=== PATIENT | female | born 1990 | race Caucasian/White ===

== ENCOUNTER 2024-07-09 20:58 | Inpatient (IN) | payer OTHER, SELFPAY ==
--- OUTSIDE RECORDS SUMMARY | 2024-07-09 21:03 | XMS_ITS | Clinical Summary ---
Author Organization [employer] Address [address] [facility] [address] [place] [address] Care Team Providers Care Assistant Pressman Name Role Phone Unavailable Primary Care Provider Unavailabl e Encounters Date Type Department Care Team Description 07/04/[address] [phone] Judy Nava PA-C from Last 3 Months Social History Tobacco Use Types Packs/Day Years Used Date Smoking Tobacco: Never Assessed Comments Unknown Sex and Gender Information Value Date Recorded Sex Assigned at Female 04/14/2022 4:06 PM EDT Legal Sex Female 4:06 PM EDT Gender Identity Female 06/30/2024 12:22 PM EST Sexual Orientation Straight 06/30/2024 12 :22 PM EST Plan of Treatment Health Maintenance Due Date Last Done Comments Depression Screening 1991 HIV Screening 1991 SDOH Screening 1991 Alcohol/Substance Use Screening 2003 Tobacco Screening 2003 Family Planning (PISQ) 2006 Hepatitis C Screening 2009 DTaP/Tdap/Td Vaccines (2 - Tdap) 01/29/2010 01/29/20 10 Hepatitis B Vaccines (1 of 3 - 19+ 3-dose series) 2010 Pap Smear 2012 Cervical Cancer Screening 2021 HPV/Cotest 2021 COVID-19 Vaccine ( - 2023-2 5 season) 2024 Influenza Vaccine (#1) 2024 Zoster Vaccines (1 of 2) 2041 RSV Patients and Pa tients Aged 60 years or older (1 - 1-dose 75+ series) 2066 HIB Vaccines Aged Out No longer eligi ble based on patient's age to complete this topic HPV Vaccines Aged Out No longer eligi ble based on patient's age to complete this topic Hepatitis A Vaccines Aged Out No long er eligible based on patient's age to complete this topic IPV Vaccines Aged Out No longer eligi ble based on patient's age to complete this topic Meningococcal Vaccine Aged Out No bruce deana eligible based on patient's age to complete this topic Pneumococcal Vaccine: Pediat rics (0 to 5 Years) and At-Risk Patients (6 to 64 Years) Aged Out No longer eligi ble based on patient's age to complete this topic RSV under 20 months Aged Out No longe r eligible based on patient's age to complete this topic Rotavirus Vaccines Aged Out No longer eligible based on patient's age to complete this topic Insurance [id number] [phone]
--- OUTSIDE RECORDS SUMMARY | 2024-07-09 21:03 | XMS_ITS | Encounter Summary ---
Author Organization [employer] Address [address] [facility] [address] [place] [address] Care Team Providers Care Manager Office Services Name Role Phone Unavailable Primary Care Provider Unavailabl e Encounter Details Date Type Department Care Team (Late st Contact Info) Description 07/04/[address] [phone] Judy Nava PA-C [address] [place] [address] Social History Tobacco Use Types Packs/Day Years Used Date Smoking Tobacco: Never Assessed Comments Unknown Sex and Gender Information Value Date Recorded Sex Assigned at Female 04/14/2022 4:06 PM EDT Legal Sex Female 4:06 PM EDT Gender Identity Female 06/30/2024 12:22 PM EST Sexual Orientation Straight 06/30/2024 12 :22 PM EST documented as of this encounter Miscellaneous Notes * Telephone Encounter - Judy Bach PA-C - 07/04/2024 5:31 PM EST Patient had an appointment scheduled with me today. Called patient multiple times, unable to reach patient. Calls went straight to messages. Left a voice message for patient to call back. Judy Bach PA-C documented in this encounter Plan of Treatment Not on file documented as of this encounter Visit Diagnoses Not on filedocumented in this encounter
[2024-07-09 21:52] VITALS: BMI 36.4
[2024-07-09 21:53] VITALS: BP 141/73; PULSE 76; RESP 18; TEMP 36.8; O2SAT 98
[2024-07-09] MEDS: Acetaminophen 325 MG TABLET 650 MG PO (22:01)
[2024-07-09] MEDS: Nicotine Polacrilex 2 MG GUM 4 MG BUCCAL ×2 (22:02→23:27)
[2024-07-09] MEDS: Melatonin 3 MG TABLET 9 MG PO (22:02)
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
[2024-07-10] MEDS: Nicotine Polacrilex 2 MG GUM 4 MG BUCCAL ×10 (01:39→23:03)
[2024-07-10] MEDS: traZODone HCL 50 MG TABLET PO ×2 (02:02→23:19)
[2024-07-10] MEDS: Ondansetron ODT 4 MG TAB.RAPDIS TRANSLINGU ×2 (06:55→16:30)
[2024-07-10 08:00] VITALS: RESP 18
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
[2024-07-10] MEDS: Acetaminophen 325 MG TABLET 650 MG PO (09:41)
--- NOTE | 2024-07-10 10:26 | PC.NURSE ---
Pt declines participation in the safety tool at this time.
[2024-07-10] MEDS: OLANZapine ODT 10 MG TAB.RAPDIS TRANSLINGU ×4 (13:36→23:23)
[2024-07-10] MEDS: Nicotine 21 MG PATCH.TD24 TRANSDERMA (13:36)
--- NOTE | 2024-07-10 14:17 | P.CONHOSP_ITS ---
History of Present Illness Data of Consult Service Date: 07/10/24 Primary Care Provider: Unknown Physician HPI Reason for consult: Admission H&P Pt is a 34-year-old female with a PMH significant for?asthma, IBS, GERD polysubstance use disorder, PTSD, anxiety, and schizoaffective disorder who is [facility] due to erratic behavior, auditory hallucinations, and noncompliance with psychotropic medications. The pt initially called the police impulsively out of the knee to speak to someone and told them that she wanted to quit smoking cigarettes. Medical consult for admission H&P. ?Pt appears manic with pressured speech and flight of ideas, but easily redirectable. Patient spends a great deal of time discussing her desire to quit smoking and her current nicotine replacement therapy, which he is dissatisfied with as she can only get nicotine gum every 2 hours. Otherwise pt has no acute medical complaints. Denies fever, chills, nausea, vomiting, abdominal pain. No shortness a breath or difficulty breathing. No chest pain/pressure, palpitations. Denies headache or acute vision changes. Review of Systems Review of Systems: Pt has no acute medical complaints at this time [facility] Medical History Schizoaffective disorder, bipolar type Social History Household Members: None Do you presently have visiting nurse or other home services: No Patient Tobacco Use Status: Current everyday Tobacco user Tobacco use type: Cigarette Smoked in Last 30 Days: Yes Patient Interested in Nicotine Replacement: No Patient Given Instructions on How to Stop Smoking: Yes Date Education Initiated: 07/09/24 Second Hand Smoke Exposure: No Use of substances other than those prescribed or required for medical reasons: No Currently Displaying Signs/Symptoms of Drug Intoxication Withdrawal: No Have you been hit, kicked, punched, or otherwise hurt by someone within the past year? If so, by whom?: No Do you feel safe in your current relationship?: No Current Relationship Is there a partner from a previous relationship who is making you feel unsafe now?: No Are you made to feel afraid or neglected: No Advance Directives: No Advance Directives Information Provided: No Do you have thoughts of harming others: None Do you have a plan to hurt others: No Plan Recently lost weight without trying: No Nutrition Risks: No Nutritional Risk Patient : No : No Poor oral hygiene: No service: No Sexual orientation: Straight/Heterosexual Meds Allergies Allergy/AdvReac Type Severity Reaction Status Date / Time carbamazepine [From Tegretol] Allergy Unknown Verified 07/09/24 21:13 celery Allergy Gastrointestinal Verified 07/09/24 21:13 Upset ibuprofen Allergy Unknown Verified 07/09/24 21:13 lithium Allergy Unknown Verified 07/09/24 21:13 methocarbamol Allergy Unknown Verified 07/09/24 21:13 mirtazapine [From Remeron] Allergy Unknown Verified 07/09/24 21:13 topiramate [From Topamax] Allergy Unknown Verified 07/09/24 21:13 ziprasidone [From Geodon] Allergy Unknown Verified 07/09/24 21:13 Active Medications: Current Medications Acetaminophen (Acetaminophen 325 Mg Tablet) 975 mg PO Q6H PRN PRN Reason: Headache/Pain Mild Scale (1-6) Al Hydroxide/Mg Hydroxide (Magnesium Hydrox/Alum Hydrox 30 Ml Oral.Susp) 30 ml PO Q6H PRN PRN Reason: Heartburn/Nausea Hydroxyzine HCl (Hydroxyzine Hcl 25 Mg Tablet) 25 mg PO Q6H PRN PRN Reason: Anxiety Magnesium Hydroxide (Milk Of Magnesia 30 Ml Oral.Susp) 30 ml PO DAILY PRN PRN Reason: Constipation Melatonin (Melatonin 3 Mg Tablet) 9 mg PO BEDTIME [facility] Last Admin: 07/09/24 22:02 Dose: 9 mg Nicotine (Nicotine 21 Mg Patch.Td24) 21 mg TRANSDERMA DAILY PRN PRN Reason: smoking cessation Last Admin: 07/10/24 13:36 Dose: 21 mg Nicotine Polacrilex (Nicotine Polacrilex 2 Mg Gum) 4 mg BUCCAL Q2H PRN PRN Reason: Nicotine Cravings Last Admin: 07/10/24 12:28 Dose: 4 mg Olanzapine (Olanzapine Odt 10 Mg Tab.Rapdis) 10 mg TRANSLINGU BID BERE Olanzapine (Olanzapine Odt 10 Mg Tab.Rapdis) 10 mg TRANSLINGU BID PRN PRN Reason: agitation Ondansetron HCl (Ondansetron Odt 4 Mg Tab.Rapdis) 4 mg TRANSLINGU RQ4H PRN PRN Reason: Nausea and Vomiting Last Admin: 07/10/24 06:55 Dose: 4 mg Trazodone HCl (Trazodone Hcl 50 Mg Tablet) 50 mg PO BEDTIME MRX1 PRN PRN Reason: Insomnia Last Admin: 07/10/24 02:02 Dose: 50 mg Home Medications ?Medication ?Instructions ?Recorded ?Confirmed ?Last Taken ?Type alprazolam 1 mg tablet 1 mg PO 07/09/24 Unknown History alprazolam 1 mg tablet mg 07/09/24 Unknown History gabapentin 300 mg capsule mg 3XD 07/09/24 Unknown History Physical Exam Vital Signs and Narrative: Vital Signs: Last Vital Signs Temp 98.2 F 07/09/24 21:53 Pulse 76 07/09/24 21:53 Resp 18 07/10/24 08:00 BP 141/73 H 07/09/24 21:53 Pulse Ox 98 07/09/24 21:53 O2 Del Method Room Air 07/09/24 21:53 BMI result Body Mass Index 36.4 General: AOx3, no acute distress Resp: CTA bilaterally CVS: S1, S2, RRR GI: +BS, NT, no distention Skin: Warm, dry Neuro: Cranial nerves II-XII grossly intact bilaterally. Motor grossly intact bilaterally Extremities: No edema Psych: Appears manic with pressured speech and flight of ideas. Redirectable. Assessment and Plan (1) Medical clearance for psychiatric admission: Status: Acute Plan Pt is a 34-year-old female with a PMH significant for?asthma, IBS, GERD polysubstance use disorder, PTSD, anxiety, and schizoaffective disorder who is admitted to [facility] unit from her jail due to erratic behavior, auditory hallucinations, and noncompliance with psychotropic medications. The pt initially called the police impulsively out of the knee to speak to someone and told them that she wanted to quit smoking cigarettes. Medical consult for admission H&P. Mood disorder Plan as per Psychiatry GERD/IBS No longer on home meds Diet controlled Asthma Not in acute exacerbation Does not appear to be on home inhalers Pt has not used home inhaler in many years Thank you for allowing us to participate in the care of this patient. Signing off at this time. Please re-consult if any acute complaints or issues arise.
[2024-07-10] MEDS: hydrOXYzine HCL 25 MG TABLET PO ×2 (16:20→23:19)
[2024-07-10] MEDS: Milk of Magnesia 30 ML ORAL.SUSP PO (17:05)
[2024-07-10 20:00] VITALS: BP 132/89; PULSE 90; RESP 16; TEMP 36.8; O2SAT 97
[2024-07-10] MEDS: Melatonin 3 MG TABLET 9 MG PO (20:00)
[2024-07-10] MEDS: Acetaminophen 325 MG TABLET 975 MG PO (23:02)
[2024-07-11] MEDS: Nicotine Polacrilex 2 MG GUM 4 MG BUCCAL ×12 (04:01→22:23)
[2024-07-11] MEDS: Magnesium Hydrox/Alum Hydrox 30 ML ORAL.SUSP PO (04:01)
[2024-07-11] MEDS: OLANZapine ODT 10 MG TAB.RAPDIS TRANSLINGU ×5 (04:46→23:22)
[2024-07-11 07:35] VITALS: BP 125/62; PULSE 81; RESP 14; TEMP 36.8; O2SAT 97
--- NOTE | 2024-07-11 08:36 | P.PNPSI_ITS ---
Subjective Subjective Date of Service: 07/11/24 Reason For Visit: Schizoaffective disorder unspecified Interim History: Met with patient; discussed with team Patient was up most of the night, sometimes running down the [place], talking/yelling. Asking for things and refusing him. She did take Zyprexa however This morning patient woke up more calm and was able to talk in a reasonable way with real estate underwriter. She said she is feeling more balanced and believes it is due to the Zyprexa home which she says she will continue taking. She can answer why she stops taking it when she gets back to the [facility] but says she does not want them to know about her stay here other than when she is going home. Patient denies any SI or HI or AVH. She denies any paranoid delusional thoughts but then says there are some people stalking her in the community and says look at me... I am gorgeous... Patient is polite with real estate underwriter but ends the discussion by leaving the room and running up the [place]. Throughout the day patient had various somatic complaints such as stuffy nose, earache but refused treatments offered. Mental Status Exam Mental Status Exam Narrative: Pt is alert and oriented; behavior is dynamic, sometimes the more calm, cooperative side other times irritable, demanding, excited; patient is not in distress; dressed in casual attire with unkempt hair but adequate hygiene; mood is described as good and affect labile; eye contact appropriate; Speech is not so pressured but more normal rate, volume and prosody; intermittent psychomotor agitation present; thought process is goal directed; Thought content is on discharge, somatic complaints; otherwise pertinent to relevant topics and without any delusional content, paranoid ideations or grandiosity; denies any S I/HI. There is no evidence of perceptual disturbance. Patients insight and judgment appear intact. Diagnostics Vital Signs (24Hr): Vital Signs - 24 hr 07/10/24 20:00 07/11/24 07:35 Temperature 98.3 F 98.2 F Pulse Rate 90 81 Respiratory Rate 16 14 Blood Pressure 132/89 125/62 Pulse Oximetry 97 97 Oxygen Delivery Method Room Air Room Air BMI result Body Mass Index 36.4 Medications Medications Current Medications Acetaminophen (Acetaminophen 325 Mg Tablet) 975 mg PO Q6H PRN PRN Reason: Headache/Pain Mild Scale (1-6) Last Admin: 07/10/24 23:02 Dose: 975 mg Al Hydroxide/Mg Hydroxide (Magnesium Hydrox/Alum Hydrox 30 Ml Oral.Susp) 30 ml PO Q6H PRN PRN Reason: Heartburn/Nausea Last Admin: 07/11/24 04:01 Dose: 30 ml Hydroxyzine HCl (Hydroxyzine Hcl 25 Mg Tablet) 25 mg PO Q6H PRN PRN Reason: Anxiety Last Admin: 07/10/24 23:19 Dose: 25 mg Magnesium Hydroxide (Milk Of Magnesia 30 Ml Oral.Susp) 30 ml PO DAILY PRN PRN Reason: Constipation Last Admin: 07/10/24 17:05 Dose: 30 ml Melatonin (Melatonin 3 Mg Tablet) 9 mg PO BEDTIME BERE Last Admin: 07/10/24 20:00 Dose: 9 mg Nicotine (Nicotine 21 Mg Patch.Td24) 21 mg TRANSDERMA DAILY PRN PRN Reason: smoking cessation Last Admin: 07/10/24 13:36 Dose: 21 mg Nicotine Polacrilex (Nicotine Polacrilex 2 Mg Gum) 4 mg BUCCAL Q2H PRN PRN Reason: Nicotine Cravings Last Admin: 07/11/24 04:01 Dose: 4 mg Olanzapine (Olanzapine Odt 10 Mg Tab.Rapdis) 10 mg TRANSLINGU BID BERE Last Admin: 07/10/24 20:00 Dose: 10 mg Olanzapine (Olanzapine Odt 10 Mg Tab.Rapdis) 10 mg TRANSLINGU BID PRN PRN Reason: agitation Last Admin: 07/11/24 04:46 Dose: 10 mg Ondansetron HCl (Ondansetron Odt 4 Mg Tab.Rapdis) 4 mg TRANSLINGU RQ4H PRN PRN Reason: Nausea and Vomiting Last Admin: 07/10/24 16:30 Dose: 4 mg Trazodone HCl (Trazodone Hcl 50 Mg Tablet) 50 mg PO BEDTIME MRX1 PRN PRN Reason: Insomnia Last Admin: 07/10/24 23:19 Dose: 50 mg Allergies Allergies Allergy/AdvReac Type Severity Reaction Status Date / Time carbamazepine [From Tegretol] Allergy Unknown Verified 07/09/24 21:13 celery Allergy Gastrointestinal Verified 07/09/24 21:13 Upset ibuprofen Allergy Unknown Verified 07/09/24 21:13 lithium Allergy Unknown Verified 07/09/24 21:13 methocarbamol Allergy Unknown Verified 07/09/24 21:13 mirtazapine [From Remeron] Allergy Unknown Verified 07/09/24 21:13 topiramate [From Topamax] Allergy Unknown Verified 07/09/24 21:13 ziprasidone [From Geodon] Allergy Unknown Verified 07/09/24 21:13 Assessment & Plan Assessment & Plan (1) Schizoaffective disorder, bipolar type: Status: Acute Code(s): F25.0 - Schizoaffective disorder, bipolar type Plan HPI: Patient is a 34-year-old female with history of bipolar disorder/psychotic disorder, IBS, GERD, who resides in a [facility] and presents for what sounds like her baseline erratic, disorganized behavior. Patient said that she called the police herself because she wanted help quitting cigarettes. Base Loader expressed surprise that the police help with such things and patient said well they are here to protect and serve... Patient wanted to walk and talk at the same time however once real estate underwriter asked about her going off Zyprexa 2 weeks ago, she said I do not want to talk to anymore I think her going to manipulate me and walked away. She tolerated real estate underwriter re approaching her; real estate underwriter asked her what she wanted and she said just bring me Zyprexa. She would not answer anything after that. In the emergency room, prior to admission, she was angry, disorganized and ended up being restrained. sheetmetal worker talked with [facility] staff who reports that this is her clear pattern and report that she went off Zyprexa 2 weeks ago; will end up in the hospital, takes medications for few days, gets discharged and then immediately discontinues medications when she gets home. senior care staff report that patient calls the police nearly every night to say some strange or delusional thing; once she said that her father had a gun was going to kill family and a swat team was actually sent to her house.... Her staff reports that she is chronically resistant to care and does not take medication; they report she smokes copious amount of cannabis. They did not reports she does anything dangerous to self or others. Formulation/clinical reasoning: According to [facility] staff, patient's current presentation is pretty close to baseline. Patient called police who brought her to the hospital however again according to [facility] staff, this is a nightly event. senior care staff did not report any dangerousness to self or others and treatment team can find no clear reason why the police chose to bring her to the ED on this particular night verses others. Patient seems grudgingly willing to get on Zyprexa; [facility] staff again report that when she is hospitalized she ends up taking medications, improved some, gets discharged and the cycle repeats. -will treat patient however if she is in fact close to baseline and has no history of dangerousness, seems that there is little inpatient admission can do other than to get her back on her medications temporarily. Given information, it seems that patient needs a Community [facility] in order to better remain stable in the community, which is something inpatient admission can not accomplish. Hospital course: 07/11 Patient was up most of the night, sometimes running down the [place], talking/ yelling.? Asking for things and refusing him.? She did take Zyprexa however This morning patient woke up more calm and was able to talk in a reasonable way with real estate underwriter.? She said she is feeling more balanced and believes it is due to the Zyprexa home which she says she will continue taking.? She can answer why she stops taking it when she gets back to the [facility] but says she does not want them to know about her stay here other than when she is going home.? Patient denies any SI or HI or AVH.? She denies any paranoid delusional thoughts but then says there are some people stalking her in the community and says look at me...? I am gorgeous... Patient is polite with real estate underwriter but ends the discussion by leaving the room and running up the [place]. -Throughout the day patient had various somatic complaints such as stuffy nose, earache but refused treatments offered. As mentioned earlier, from collateral reports, patient seems to be near baseline. senior care does not report any dangerousness and patient although can be disorganized and intrusive has not been a danger to herself or others on the unit and wants discharge. Will monitor for few more days and see how medications affect her since she is willing to take them. Plan: Twelve b Q 15 minute checks Zyprexa/Zydis 10 mg b.i.d. Patient educated on: diagnosis, medication risk/benefits and therapeutic strategies Informed Consent: understands, does not understand and further education needed Reason for continued inpatient stay Substantial Risk for: stable for discharge, rapid decompensation and med/psych decompensation Time Spent With Patient Time: Total time managing care of this patient today ____ minutes.
[2024-07-11] MEDS: Milk of Magnesia 30 ML ORAL.SUSP PO (10:31)
[2024-07-11] MEDS: hydrOXYzine HCL 25 MG TABLET PO ×3 (11:19→21:52)
[2024-07-11] MEDS: Nicotine 21 MG PATCH.TD24 TRANSDERMA (12:09)
[2024-07-11] MEDS: Acetaminophen 325 MG TABLET 975 MG PO (12:29)
[2024-07-11] MEDS: guaiFENesin 100 MG/5 ML 5 ML LIQUID PO (12:32)
--- NOTE | 2024-07-11 15:24 | PC.NURSE ---
This abstract writer texted Annie to inquire about giving atarax 25mg early, and he gave permission.
--- NOTE | 2024-07-11 16:45 | PC.NURSE ---
Pt stated that she was angry and intentionally broke a pair of headphones.
[2024-07-11] MEDS: Melatonin 3 MG TABLET 9 MG PO (19:52)
[2024-07-11] MEDS: traZODone HCL 50 MG TABLET PO ×2 (21:52→23:22)
[2024-07-12] MEDS: Magnesium Hydrox/Alum Hydrox 30 ML ORAL.SUSP PO (00:45)
[2024-07-12] MEDS: Nicotine Polacrilex 2 MG GUM 4 MG BUCCAL ×15 (01:00→23:57)
[2024-07-12] MEDS: Ondansetron ODT 4 MG TAB.RAPDIS TRANSLINGU ×2 (01:50→11:57)
[2024-07-12] MEDS: Acetaminophen 325 MG TABLET 975 MG PO ×2 (02:25→18:26)
[2024-07-12] MEDS: OLANZapine ODT 10 MG TAB.RAPDIS TRANSLINGU ×4 (03:37→20:08)
[2024-07-12] MEDS: guaiFENesin 100 MG/5 ML 5 ML LIQUID PO (04:03)
[2024-07-12] MEDS: hydrOXYzine HCL 25 MG TABLET PO ×3 (05:03→20:06)
--- NOTE | 2024-07-12 10:30 | HO.PSYCHPN ---
Subjective Subjective Date of Service: 07/12/24 Reason For Visit: Schizoaffective disorder unspecified Interim History: Met with patient; discussed with team Patient remains restless, talkative, delusional. Overheard asking RN do you use heroin? You are a baby... stop bossing me around... These statements were made while she was asking for PRN's. Disorganized. Poor sleep. Patient had signed a CV and then a 3 day on 07/09/24 in the evening. Patient understands CV and Silverman warning. RN asked this internal communications writer if internal communications writer would accept the CV because it wasn't accepted or rejected after being signed. This internal communications writer accepted the CV. After this internal communications writer accepted the CV he realized it was signed 07/09 not last night 07/11. Decision to file for section 7/8 will be determined on Sunday by the primary team. Patient had poor sleep. Utilizing PRN Zyprexa. Easily irritated. Calm with this internal communications writer. Has an edge. Pressured. Asking for anxiety and agitation medications if needed. Patient denies any SI or HI or AVH. Review of Systems Review of Systems Pt has no acute medical complaints at this time Mental Status Exam Mental Status Exam Narrative: Pt is alert and oriented; behavior is dynamic, sometimes the more calm, cooperative side other times irritable, demanding, excited; patient is not in distress; dressed in casual attire with unkempt hair but adequate hygiene; mood is described as good and affect labile; eye contact appropriate; Speech is not so pressured but more normal rate, volume and prosody; intermittent psychomotor agitation present; thought process is goal directed; Thought content is on discharge, somatic complaints; otherwise pertinent to relevant topics and without any delusional content, paranoid ideations or grandiosity; denies any SI/HI. There is no evidence of perceptual disturbance. Patients insight and judgment appear intact. Diagnostics Vital Signs (24Hr): BMI result Body Mass Index 36.4 Medications Medications Current Medications Acetaminophen (Acetaminophen 325 Mg Tablet) 975 mg PO Q6H PRN PRN Reason: Headache/Pain Mild Scale (1-6) Last Admin: 07/12/24 02:25 Dose: 975 mg Al Hydroxide/Mg Hydroxide (Magnesium Hydrox/Alum Hydrox 30 Ml Oral.Susp) 30 ml PO Q6H PRN PRN Reason: Heartburn/Nausea Last Admin: 07/12/24 00:45 Dose: 30 ml Guaifenesin (Guaifenesin 100 Mg/5 Ml 5 Ml Liquid) 5 ml PO Q6H PRN PRN Reason: Cough Last Admin: 07/12/24 04:03 Dose: 5 ml Hydroxyzine HCl (Hydroxyzine Hcl 25 Mg Tablet) 25 mg PO Q6H PRN PRN Reason: Anxiety Last Admin: 07/12/24 05:03 Dose: 25 mg Magnesium Hydroxide (Milk Of Magnesia 30 Ml Oral.Susp) 30 ml PO DAILY PRN PRN Reason: Constipation Last Admin: 07/11/24 10:31 Dose: 30 ml Melatonin (Melatonin 3 Mg Tablet) 9 mg PO BEDTIME BERE Last Admin: 07/11/24 19:52 Dose: 9 mg Nicotine (Nicotine 21 Mg Patch.Td24) 21 mg TRANSDERMA DAILY PRN PRN Reason: smoking cessation Last Admin: 07/11/24 12:09 Dose: 21 mg Nicotine Polacrilex (Nicotine Polacrilex 2 Mg Gum) 4 mg BUCCAL Q1H PRN PRN Reason: Nicotine Cravings Last Admin: 07/12/24 08:50 Dose: 4 mg Olanzapine (Olanzapine Odt 10 Mg Tab.Rapdis) 10 mg TRANSLINGU BID BERE Last Admin: 07/12/24 09:46 Dose: 10 mg Olanzapine (Olanzapine Odt 10 Mg Tab.Rapdis) 10 mg TRANSLINGU BID PRN PRN Reason: agitation Last Admin: 07/12/24 10:27 Dose: 10 mg Ondansetron HCl (Ondansetron Odt 4 Mg Tab.Rapdis) 4 mg TRANSLINGU RQ4H PRN PRN Reason: Nausea and Vomiting Last Admin: 07/12/24 01:50 Dose: 4 mg Trazodone HCl (Trazodone Hcl 50 Mg Tablet) 50 mg PO BEDTIME MRX1 PRN PRN Reason: Insomnia Last Admin: 07/11/24 23:22 Dose: 50 mg Allergies Allergies Allergy/AdvReac Type Severity Reaction Status Date / Time carbamazepine [From Tegretol] Allergy Unknown Verified 07/09/24 21:13 celery Allergy Gastrointestinal Verified 07/09/24 21:13 Upset ibuprofen Allergy Unknown Verified 07/09/24 21:13 lithium Allergy Unknown Verified 07/09/24 21:13 methocarbamol Allergy Unknown Verified 07/09/24 21:13 mirtazapine [From Remeron] Allergy Unknown Verified 07/09/24 21:13 topiramate [From Topamax] Allergy Unknown Verified 07/09/24 21:13 ziprasidone [From Geodon] Allergy Unknown Verified 07/09/24 21:13 Assessment & Plan Assessment & Plan (1) Schizoaffective disorder, bipolar type: Status: Acute Code(s): F25.0 - Schizoaffective disorder, bipolar type Plan HPI: Patient is a 34-year-old female with history of bipolar disorder/psychotic disorder, IBS, GERD, who resides in a shelter and presents for what sounds like her baseline erratic, disorganized behavior. Patient said that she called the police herself because she wanted help quitting cigarettes. Printing Estimator expressed surprise that the police help with such things and patient said well they are here to protect and serve... Patient wanted to walk and talk at the same time however once internal communications writer asked about her going off Zyprexa 2 weeks ago, she said I do not want to talk to anymore I think her going to manipulate me and walked away. She tolerated internal communications writer re approaching her; internal communications writer asked her what she wanted and she said just bring me Zyprexa. She would not answer anything after that. In the emergency room, prior to admission, she was angry, disorganized and ended up being restrained. crop or grain farmworker talked with shelter staff who reports that this is her clear pattern and report that she went off Zyprexa 2 weeks ago; will end up in the hospital, takes medications for few days, gets discharged and then immediately discontinues medications when she gets home. [facility] staff report that patient calls the police nearly every night to say some strange or delusional thing; once she said that her father had a gun was going to kill family and a swat team was actually sent to her house.... Her staff reports that she is chronically resistant to care and does not take medication; they report she smokes copious amount of cannabis. They did not reports she does anything dangerous to self or others. Formulation/clinical reasoning: According to shelter staff, patient's current presentation is pretty close to baseline. Patient called police who brought her to the hospital however again according to shelter staff, this is a nightly event. halfway staff did not report any dangerousness to self or others and treatment team can find no clear reason why the police chose to bring her to the ED on this particular night verses others. Patient seems grudgingly willing to get on Zyprexa; shelter staff again report that when she is hospitalized she ends up taking medications, improved some, gets discharged and the cycle repeats. -will treat patient however if she is in fact close to baseline and has no history of dangerousness, seems that there is little inpatient admission can do other than to get her back on her medications temporarily. Given information, it seems that patient needs a Community [facility] in order to better remain stable in the community, which is something inpatient admission can not accomplish. Hospital course: 07/11 Patient was up most of the night, sometimes running down the [place], talking/yelling.? Asking for things and refusing him.? She did take Zyprexa however This morning patient woke up more calm and was able to talk in a reasonable way with internal communications writer.? She said she is feeling more balanced and believes it is due to the Zyprexa home which she says she will continue taking.? She can answer why she stops taking it when she gets back to the shelter but says she does not want them to know about her stay here other than when she is going home.? Patient denies any SI or HI or AVH.? She denies any paranoid delusional thoughts but then says there are some people stalking her in the community and says look at me...? I am gorgeous... Patient is polite with internal communications writer but ends the discussion by leaving the room and running up the [place]. -Throughout the day patient had various somatic complaints such as stuffy nose, earache but refused treatments offered. As mentioned earlier, from collateral reports, patient seems to be near baseline. halfway does not report any dangerousness and patient although can be disorganized and intrusive has not been a danger to herself or others on the unit and wants discharge. Will monitor for few more days and see how medications affect her since she is willing to take them. 07/12: Patient had signed a CV and then a 3 day on 07/09/24 in the evening. Patient understands CV and Silverman warning. RN asked this internal communications writer if internal communications writer would accept the CV because it wasn't accepted or rejected after being signed. This internal communications writer accepted the CV. After this internal communications writer accepted the CV he realized it was signed 07/09 not last night 07/11. Decision to file for section 7/ will be determined on Sunday07/14/24 by the primary team. Added Thorazine 50 mg PRN for psychosis/agitation as she has been utilizing Zyprexa PRN. Plan: Twelve b Q 15 minute checks Zyprexa/Zydis 10 mg b.i.d. Reason for continued inpatient stay Substantial Risk for: inability to function and rapid decompensation Time Spent With Patient Time: Total time managing care of this patient today ____ minutes.
[2024-07-12] MEDS: chlorproMAZINE HCl 25 MG TABLET 50 MG PO ×3 (11:29→20:05)
[2024-07-12] MEDS: Nicotine 21 MG PATCH.TD24 TRANSDERMA (14:56)
[2024-07-12 20:00] VITALS: BP 116/76; PULSE 98; RESP 16; TEMP 36.9; O2SAT 97
[2024-07-12] MEDS: Melatonin 3 MG TABLET 9 MG PO (20:06)
[2024-07-12] MEDS: traZODone HCL 50 MG TABLET PO (20:07)
[2024-07-13] MEDS: OLANZapine ODT 10 MG TAB.RAPDIS TRANSLINGU ×5 (00:13→23:39)
[2024-07-13] MEDS: traZODone HCL 50 MG TABLET PO ×3 (00:13→23:39)
[2024-07-13] MEDS: Nicotine Polacrilex 2 MG GUM 4 MG BUCCAL ×5 (00:56→09:50)
[2024-07-13] MEDS: hydrOXYzine HCL 25 MG TABLET PO ×3 (03:30→20:07)
[2024-07-13] MEDS: chlorproMAZINE HCl 25 MG TABLET 50 MG PO ×3 (05:12→23:38)
[2024-07-13] MEDS: Acetaminophen 325 MG TABLET 975 MG PO ×3 (06:50→20:07)
[2024-07-13] MEDS: Nicotine 21 MG PATCH.TD24 TRANSDERMA (09:49)
--- NOTE | 2024-07-13 10:00 | P.PNPSI_ITS ---
Subjective Subjective Date of Service: 07/13/24 Reason For Visit: Schizoaffective disorder unspecified Interim History: Met with patient; discussed with team Less pressured, less loud, more appropriate with staff. Says Thorazine has been helpful for her. Less delusional statements compared to yesterday. She is complaining of foul smelling urine. Asking about being prescribed Adderall because she has ADHD. Advised against that at this time. She was utilizing Nicotine gum 4 mg regularly and dose adjusted to 2 mg instead. Slept a few hours last night. Patient denies any SI or HI or AVH. Review of Systems Review of Systems Pt has no acute medical complaints at this time Mental Status Exam Mental Status Exam Narrative: Pt is alert and oriented; behavior is dynamic, sometimes the more calm, cooperative side other times irritable, demanding, excited; patient is not in distress; dressed in casual attire with unkempt hair but adequate hygiene; mood is described as good and affect labile; eye contact appropriate; Speech is not so pressured but more normal rate, volume and prosody; intermittent psychomotor agitation present; thought process is goal directed; Thought content is on discharge, somatic complaints; otherwise pertinent to relevant topics and without any delusional content, paranoid ideations or grandiosity; denies any SI/HI. There is no evidence of perceptual disturbance. Patients insight and judgment appear intact. Diagnostics Vital Signs (24Hr): Vital Signs - 24 hr 07/12/24 20:00 Temperature 98.4 F Pulse Rate 98 Respiratory Rate 16 Blood Pressure 116/76 Pulse Oximetry 97 Oxygen Delivery Method Room Air BMI result Body Mass Index 36.4 Medications Medications Current Medications Acetaminophen (Acetaminophen 325 Mg Tablet) 975 mg PO Q6H PRN PRN Reason: Headache/Pain Mild Scale (1-6) Last Admin: 07/13/24 06:50 Dose: 975 mg Al Hydroxide/Mg Hydroxide (Magnesium Hydrox/Alum Hydrox 30 Ml Oral.Susp) 30 ml PO Q6H PRN PRN Reason: Heartburn/Nausea Last Admin: 07/12/24 00:45 Dose: 30 ml Chlorpromazine HCl (Chlorpromazine Hcl 25 Mg Tablet) 50 mg PO QID PRN PRN Reason: Psychosis Last Admin: 07/13/24 05:12 Dose: 50 mg Guaifenesin (Guaifenesin 100 Mg/5 Ml 5 Ml Liquid) 5 ml PO Q6H PRN PRN Reason: Cough Last Admin: 07/12/24 04:03 Dose: 5 ml Hydrocortisone (Hydrocortisone 2.5 % Rectal Cr 30 Gm Tube) 1 appl TOPICAL DAILY PRN PRN Reason: hemorrhoid pain and discomfort Hydroxyzine HCl (Hydroxyzine Hcl 25 Mg Tablet) 25 mg PO Q6H PRN PRN Reason: Anxiety Last Admin: 07/13/24 03:30 Dose: 25 mg Magnesium Hydroxide (Milk Of Magnesia 30 Ml Oral.Susp) 30 ml PO DAILY PRN PRN Reason: Constipation Last Admin: 07/11/24 10:31 Dose: 30 ml Melatonin (Melatonin 3 Mg Tablet) 9 mg PO BEDTIME BERE Last Admin: 07/12/24 20:06 Dose: 9 mg Nicotine (Nicotine 21 Mg Patch.Td24) 21 mg TRANSDERMA DAILY PRN PRN Reason: smoking cessation Last Admin: 07/13/24 09:49 Dose: 21 mg Nicotine Polacrilex (Nicotine Polacrilex 2 Mg Gum) 4 mg BUCCAL Q1H PRN PRN Reason: Nicotine Cravings Last Admin: 07/13/24 09:50 Dose: 4 mg Olanzapine (Olanzapine Odt 10 Mg Tab.Rapdis) 10 mg TRANSLINGU BID BERE Last Admin: 07/13/24 08:57 Dose: 10 mg Olanzapine (Olanzapine Odt 10 Mg Tab.Rapdis) 10 mg TRANSLINGU BID PRN PRN Reason: agitation Last Admin: 07/13/24 00:13 Dose: 10 mg Ondansetron HCl (Ondansetron Odt 4 Mg Tab.Rapdis) 4 mg TRANSLINGU RQ4H PRN PRN Reason: Nausea and Vomiting Last Admin: 07/12/24 11:57 Dose: 4 mg Trazodone HCl (Trazodone Hcl 50 Mg Tablet) 50 mg PO BEDTIME MRX1 PRN PRN Reason: Insomnia Last Admin: 07/13/24 00:13 Dose: 50 mg Allergies Allergies Allergy/AdvReac Type Severity Reaction Status Date / Time carbamazepine [From Tegretol] Allergy Unknown Verified 07/09/24 21:13 celery Allergy Gastrointestinal Verified 07/09/24 21:13 Upset ibuprofen Allergy Unknown Verified 07/09/24 21:13 lithium Allergy Unknown Verified 07/09/24 21:13 methocarbamol Allergy Unknown Verified 07/09/24 21:13 mirtazapine [From Remeron] Allergy Unknown Verified 07/09/24 21:13 topiramate [From Topamax] Allergy Unknown Verified 07/09/24 21:13 ziprasidone [From Geodon] Allergy Unknown Verified 07/09/24 21:13 Assessment & Plan Assessment & Plan (1) Schizoaffective disorder, bipolar type: Status: Acute Code(s): F25.0 - Schizoaffective disorder, bipolar type Plan HPI: Patient is a 34-year-old female with history of bipolar disorder/psychotic disorder, IBS, GERD, who resides in a intermediate and presents for what sounds li ke her baseline erratic, disorganized behavior. Patient said that she called the police herself because she wanted help quitting cigarettes. Interface Control Officer expressed surprise that the police help with such things and patient said well they are here to protect and serve... Patient wanted to walk and talk at the same time however once hand sign writer asked about her going off Zyprexa 2 weeks ago, she said I do not want to talk to anymore I think her going to manipulate me and walked away. She tolerated hand sign writer re approaching her; hand sign writer asked her what she wanted and she said just bring me Zyprexa. She would not answer anything after that. In the emergency room, prior to admission, she was angry, disorganized and ended up being restrained. immigration case worker talked with intermediate staff who reports that this is her clear pattern and report that she went off Zyprexa 2 weeks ago; will end up in the hospital, takes medications for few days, gets discharged and then immediately discontinues medications when she gets home. retirement staff report that patient calls the police nearly every night to say some strange or delusional thing; once she said that her father had a gun was going to kill family and a swat team was actually sent to her house.... Her staff reports that she is chronically resistant to care and does not take medication; they report she smokes copious amount of cannabis. They did not reports she does anything dangerous to self or others. Formulation/clinical reasoning: According to intermediate staff, patient's current presentation is pretty close to baseline. Patient called police who brought her to the hospital however again according to intermediate staff, this is a nightly event. retirement staff did not report any dangerousness to self or others and treatment team can find no clear reason why the police chose to bring her to the ED on this particular night verses others. Patient seems grudgingly willing to get on Zyprexa; intermediate staff again report that when she is hospitalized she ends up taking medications, improved some, gets discharged and the cycle repeats. -will treat patient however if she is in fact close to baseline and has no history of dangerousness, seems that there is little inpatient admission can do other than to get her back on her medications temporarily. Given information, it seems that patient needs a Community Shrestha in order to better remain stable in the community, which is something inpatient admission can not accomplish. Hospital course: 07/11 Patient was up most of the night, sometimes running down the [place], talking/yelling.? Asking for things and refusing him.? She did take Zyprexa however This morning patient woke up more calm and was able to talk in a reasonable way with hand sign writer.? She said she is feeling more balanced and believes it is due to the Zyprexa home which she says she will continue taking.? She can answer why she stops taking it when she gets back to the intermediate but says she does not want them to know about her stay here other than when she is going home.? Patient denies any SI or HI or AVH.? She denies any paranoid delusional thoughts but then says there are some people stalking her in the community and says look at me...? I am gorgeous... Patient is polite with hand sign writer but ends the discussion by leaving the room and running up the [place]. -Throughout the day patient had various somatic complaints such as stuffy nose, earache but refused treatments offered. As mentioned earlier, from collateral reports, patient seems to be near baseline. retirement does not report any dangerousness and patient although can be disorganized and intrusive has not been a danger to herself or others on the unit and wants discharge. Will monitor for few more days and see how medications affect her since she is willing to take them. 07/12: Patient had signed a CV and then a 3 day on 07/09/24 in the evening. Patient understands CV and Silverman warning. RN asked this hand sign writer if hand sign writer would accept the CV because it wasn't accepted or rejected after being signed. This hand sign writer accepted the CV. After this hand sign writer accepted the CV he realized it was signed 07/09 not last night 07/11. Decision to file for section 7/ will be determined on Sunday07/14/24 by the primary team. Added Thorazine 50 mg PRN for psychosis/agitation as she has been utilizing Zyprexa PRN. 07/13: continue current management and treatment plan. Check UA. Lowered nicotine gum dose. Plan: Twelve b Q 15 minute checks Zyprexa/Zydis 10 mg b.i.d. Reason for continued inpatient stay Substantial Risk for: harm to others, inability to function and rapid decompensation Time Spent With Patient Time: Total time managing care of this patient today ____ minutes.
[2024-07-13] MEDS: Nicotine Polacrilex 2 MG GUM BUCCAL ×10 (11:01→23:42)
[2024-07-13 12:39] LABS: Appearance Urine Clear; Color Urine Yellow; Glucose Urine UA Negative (Negative); Leukocyte Esterase Urine Negative (Negative); Nitrite Urine Negative (Negative); Specific Gravity - Urine <= 1.005 (1.005-1.025); Urine Blood Negative (Negative); Urine Ketones Negative (Negative); Urine Protein Negative (Neg-Trace)
[2024-07-13] MEDS: Milk of Magnesia 30 ML ORAL.SUSP PO (18:57)
[2024-07-13 20:00] VITALS: BP 112/76; PULSE 100; RESP 16; TEMP 36.6; O2SAT 97
[2024-07-13] MEDS: Sodium Chloride 0.65 % Nasal 44 ML SPRBTL 1 SPRAY NOSTRIL-B (20:00)
[2024-07-13] MEDS: Melatonin 3 MG TABLET 9 MG PO (20:06)
[2024-07-13] MEDS: Albuterol Sulfate 90 MCG 8 GM INHALER 2 PUFF INHALE (23:56)
[2024-07-14] MEDS: Nicotine Polacrilex 2 MG GUM BUCCAL ×7 (00:42→10:21)
[2024-07-14] MEDS: hydrOXYzine HCL 25 MG TABLET PO (02:35)
[2024-07-14] MEDS: Sodium Chloride 0.65 % Nasal 44 ML SPRBTL 1 SPRAY NOSTRIL-B (03:20)
[2024-07-14] MEDS: OLANZapine ODT 10 MG TAB.RAPDIS TRANSLINGU ×2 (03:46→09:33)
[2024-07-14] MEDS: Milk of Magnesia 30 ML ORAL.SUSP PO (04:41)
[2024-07-14] MEDS: Hydrocortisone 2.5 % Rectal Cr 30 GM TUBE 1 APPL TOPICAL (09:05)
[2024-07-14] MEDS: Nicotine 21 MG PATCH.TD24 TRANSDERMA (09:31)
[2024-07-14] MEDS: Albuterol Sulfate 90 MCG 8 GM INHALER 2 PUFF INHALE (10:21)
--- NOTE | 2024-07-14 10:21 | P.DS_ITS ---
DS: Providers Provider Date of Service: 07/14/24 Date of admission: 07/09/24 20:58 Date of discharge: 07/14/24 Primary care physician: Unknown Physician Attending physician on admission: Tj Bueno Consults: 07/09/24 21:27 Consult to Hospitalist Routine Comment: Consulting Provider: [facility] Reason For Exam: admission physical 07/09/24 21:41 Consult to Hospitalist Routine Comment: Consulting Provider: [facility] Reason For Exam: admission physical Attending physician on discharge: Tj Bueno DS: Diagnosis Discharge Diagnosis (1) Schizoaffective disorder, bipolar type: Status: Acute DS: Medications Discharge Medications Home Medications: Previous Rx's ?Medication ?Instructions ?Recorded albuterol sulfate 90 mcg/actuation 2 puff inhalation RQ6H PRN 07/14/24 aerosol inhaler (Ventolin HFA) Shortness Of Breath/Wheezing 30 days #6.7 grams hydrocortisone 2.5 % topical cream 1 appl topical DAILY PRN 07/14/24 with perineal applicator hemorrhoid pain and discomfort 30 (Proctozone-HC) days #30 grams hydroxyzine HCl 25 mg tablet 25 mg PO Q6H PRN mild Anxiety 30 07/14/24 days #90 tabs melatonin 10 mg tablet 10 mg PO BEDTIME PRN insomnia 30 07/14/24 days #30 tabs nicotine (polacrilex) 2 mg gum 2 mg buccal Q1H PRN Nicotine 07/14/24 Cravings 30 days #100 ea nicotine 21 mg/24 hr daily 21 mg transdermal DAILY PRN 07/14/24 transdermal patch smoking cessation 28 days #28 ea olanzapine 10 mg tablet (Zyprexa) 10 mg PO TID 30 days #90 tabs 07/14/24 sodium chloride 0.65 % nasal spray 1 spray intranasal Q1H PRN dry 07/14/24 aerosol (Deep Sea Nasal) nasal passages 30 days #44 mL trazodone 50 mg tablet 50 mg PO BEDTIME MRX1 PRN Insomnia 07/14/24 30 days #45 tabs Mental Status Exam Mental Status Exam Narrative: Pt is alert and oriented; behavior is more calm and cooperative; still guarded; patient is not in distress; dressed in casual attire with adequate hygiene; mood is described as good but affect constricted; eye contact appropriate; Speech is not pressured; normal rate, volume and prosody; no psychomotor agitation present; thought process is goal directed; Thought content is on discharge; otherwise will not disclose; denies any SI/HI. Seems internally preoccupied; Patients insight and judgment impaired, but at baseline and adequate. Data Data Completed and Pending Completed studies during hospitalization [Text1]: 07/13/24 12:05 Urine Color Yellow Urine Appearance Clear Urine pH 8.0 Ur Specific [place] <= 1.005 Urine Protein Negative Urine Glucose (UA) Negative Urine Ketones Negative Urine Blood Negative Urine Nitrite Negative Ur Leukocyte Esterase Negative DS: Summary Hospital Course Hospital Course: HPI: Patient is a 34-year-old female with history of bipolar disorder/psychotic disorder, IBS, GERD, who resides in a long-term and presents for what sounds like her baseline erratic, disorganized behavior. Patient said that she called the police herself because she wanted help quitting cigarettes. Electronic Parts Salesperson expressed surprise that the police help with such things and patient said well they are here to protect and serve... Patient wanted to walk and talk at the same time however once literary writer asked about her going off Zyprexa 2 weeks ago, she said I do not want to talk to anymore I think her going to manipulate me and walked away. She tolerated literary writer re approaching her; literary writer asked her what she wanted and she said just bring me Zyprexa. She would not answer anything after that. In the emergency room, prior to admission, she was angry, disorganized and ended up being restrained. leather production worker talked with long-term staff who reports that this is her clear pattern and report that she went off Zyprexa 2 weeks ago; will end up in the hospital, takes medications for few days, gets discharged and then immediately discontinues medications when she gets home. halfway staff report that patient calls the police nearly every night to say some strange or delusional thing; once she said that her father had a gun was going to kill family and a swat team was actually sent to her house.... Her staff reports that she is chronically resistant to care and does not take medication; they report she smokes copious amount of cannabis. They did not reports she does anything dangerous to self or others. Formulation/clinical reasoning: According to long-term staff, patient's current presentation is pretty close to baseline. Patient called police who brought her to the hospital however again according to long-term staff, this is a nightly event. halfway staff did not report any dangerousness to self or others and treatment team can find no clear reason why the police chose to bring her to the ED on this particular night verses others. Patient seems grudgingly willing to get on Zyprexa; long-term staff again report that when she is hospitalized she ends up taking medications, improved some, gets discharged and the cycle repeats. -will treat patient however if she is in fact close to baseline and has no history of dangerousness, seems that there is little inpatient admission can do other than to get her back on her medications temporarily. Given information, it seems that patient needs a Community Shrestha in order to better remain stable in the community, which is something inpatient admission can not accomplish. Hospital course: 07/11 Patient was up most of the night, sometimes running down the [place], talking/yelling.? Asking for things and refusing him.? She did take Zyprexa however This morning patient woke up more calm and was able to talk in a reasonable way with literary writer.? She said she is feeling more balanced and believes it is due to the Zyprexa home which she says she will continue taking.? She can answer why she stops taking it when she gets back to the long-term but says she does not want them to know about her stay here other than when she is going home.? Patient denies any SI or HI or AVH.? She denies any paranoid delusional thoughts but then says there are some people stalking her in the community and says look at me...? I am gorgeous... Patient is polite with literary writer but ends the discussion by leaving the room and running up the [place]. -Throughout the day patient had various somatic complaints such as stuffy nose, earache but refused treatments offered. As mentioned earlier, from collateral reports, patient seems to be near baseline. halfway does not report any dangerousness and patient although can be disorganized and intrusive has not been a danger to herself or others on the unit and wants discharge. Will monitor for few more days and see how medications affect her since she is willing to take them. Patient eventually signed a CV which was accepted however she still wanted to discharge on Friday 07/14. Throughout the majority of her stay, she was still expressing delusional thinking, poor sleep and with disorganized behavior however she continued to take Zyprexa and towards the end of admission, rosie started to subside and she was less pressured, normal speaking voice and making significantly less delusional comments. She was using Thorazine as a p.r.n. which she found helpful. Patient continued to want discharge. She has had no dangerousness at all, prior to this admission or during and has remained without any safety concerns throughout time on the unit. Although she has been disorganized and expressing delusional ideations, per her long-term, patient is at baseline. A given her history, it is likely she will stop taking medications at some point and decompensate further however again this is a chronic issue, one that will not resolve with longer stay on inpatient unit. Rather, patient would likely do much better with a community Shrestha in place, however this is not a function of inpatient admission but rather rests with her outpatient team (per long-term, patients family is against medication). Patient is returning to her long-term, which is structured environment that is staffed 08/01. Patient is not in imminent risk for harm to self or others and request for discharge honored. Time spent discussing smoking cessation with patient: 3 to 10 minutes Status at Discharge Functional status at discharge: independent ambulation Overall status at discharge: patient is back to baseline Time Spent with Patient Time attestation: Total time managing care of this patient today _40___ minutes. Time spent: Greater than 30 minutes Specific discharge activities: Met with patient; discussed with team; charting, scripts Discharge Plan Discharge Anticipated Discharge Date/Time: 07/14/24 11:45 Patient Disposition: Home, Self-Care Discharge Diagnosis: Schizoaffective disorder, bipolar type Referrals: [facility] [Provider Group] - 1 Week (07-14-24 [facility] was added to patients chart. Please call [phone] to schedule your follow up appt within 7-10 days of discharge.) Discharge Medications: New albuterol sulfate [Ventolin HFA] 90 mcg/actuation Hfa Aerosol Inhaler 2 puff inhalation RQ6H PRN (Reason: Shortness Of Breath/Wheezing) 30 Days Qty: 6.7 0RF nicotine 21 mg/24 hr Patch 24 Hour 21 mg transdermal DAILY PRN (Reason: smoking cessation) 28 Days Qty: 28 0RF Rx Instructions: remove at bedtime nicotine (polacrilex) 2 mg Gum 2 mg buccal Q1H PRN (Reason: Nicotine Cravings) 30 Days Qty: 100 0RF olanzapine [Zyprexa] 10 mg tablet 10 mg PO TID 30 Days Qty: 90 0RF trazodone 50 mg Tablet 50 mg PO BEDTIME MRX1 PRN (Reason: Insomnia) 30 Days Qty: 45 0RF Rx Instructions: take 1 tab at bedtime as needed; may take additional tab at night as needed for continued insomnia Deep Sea Nasal 0.65 % Aerosol,[place] 1 spray intranasal Q1H PRN (Reason: dry nasal passages) 30 Days Qty: 44 0RF melatonin 10 mg tablet 10 mg PO BEDTIME PRN (Reason: insomnia) 30 Days Qty: 30 0RF hydrocortisone [Proctozone-HC] 2.5 % Cream With Perineal Applicator 1 appl topical DAILY PRN (Reason: hemorrhoid pain and discomfort) 30 Days Qty: 30 0RF hydroxyzine HCl 25 mg Tablet 25 mg PO Q6H PRN (Reason: mild Anxiety) 30 Days Qty: 90 0RF chlorpromazine 50 mg tablet 50 mg PO TID PRN (Reason: agitation/delusional thinking) 30 Days Qty: 90 0RF Discontinued alprazolam 1 mg tablet alprazolam 1 mg tablet 1 mg PO gabapentin 300 mg capsule 3XD Discharge Orders: Discharge Order (Routine); Ordered 07/14/24 Ordered By: Tj Bueno Diet: Regular diet Activity on Discharge: As tolerated Stand Alone Forms: Patient Portal Discharge page Print Language: Slovenian Care Plan Goals: Maintain mood and safe behaviors Take medications as prescribed Practice coping skills Continue with outpatient providers and reach out to them as needed Health Concerns: Mood stability and behaviors Sobriety from Cannabis Plan of Treatment: Follow up with your PCP, psychiatric provider and other outpatient providers reg arding above concerns Take medications as prescribed Assessment: Risk assessment at time of discharge:? Patient was interviewed prior to discharge and found to be fully oriented and without any SI or HI. Patient has improved insight and judgment and wants to continue treatment. Patient is not in imminent risk of harm to self or others and has a safety plan that includes presenting to the closest ER or calling 911 if feeling unsafe.? Patient has been observed closely by nursing and unit staff throughout admission; patient has not engaged in any behaviors that suggest dangerousness to self or others and has demonstrated appropriate behaviors and impulse control Discharge Date/Time: 07/14/24 11:28
--- NOTE | 2024-07-14 11:49 | PC.NURSE ---
Patient easily engaged. Reports feeling ready for discharge. Planning to return to [facility] . Denies SI/HI at this time. Denies A/V hallucinations. Discharge paperwork reviewed with patient reports understanding. Medications reviewed with patient reports understanding. Information provided for [facility]. All belongings taken with patient.
== END 2024-07-14 11:28 | disposition home or self-care (01) | DRG 885 ==
PROVIDERS: Psychiatry & Neurology Psychiatry; Admitting Provider Psychiatry & Neurology Psychiatry; Visit Provider Psychiatry & Neurology Psychiatry
DX: F25.0 Schizoaffective disorder, bipolar type (principal); K21.9 Gastro-esophageal reflux disease without esophagitis; F19.90 Other psychoactive substance use, unspecified, uncomplicated; K58.9 Irritable bowel syndrome, unspecified; F17.210 Nicotine dependence, cigarettes, uncomplicated; Z71.6 Tobacco abuse counseling; Z79.899 Other long term (current) drug therapy
CPT/HCPCS: 81003

== ENCOUNTER → 2024-07-09 20:58 | Outpatient (BNV) | payer OTHER, SELFPAY | PROVIDERS: Admitting Provider Psychiatry & Neurology Psychiatry; Visit Provider Psychiatry & Neurology Psychiatry | DX: F25.0 Schizoaffective disorder, bipolar type (principal) | CPT/HCPCS: 90792; 99232; 99239 ==

== ENCOUNTER → 2024-07-09 20:58 | Outpatient (BNV) | payer OTHER, SELFPAY | PROVIDERS: Admitting Provider Psychiatry & Neurology Psychiatry; Visit Provider Student in an Organized Health Care Education/Training Program | DX: Z00.8 Encounter for other general examination (principal) | CPT/HCPCS: 99429 ==